=== PATIENT | female | born 2000 | race Two or more races ===

== ENCOUNTER 2021-12-26 01:38 | Emergency (ER) | payer SELFPAY ==
[~2021-12-26] VITALS: Ht 154.9 cm; Wt 98.7 kg
--- NOTE | 2021-12-26 03:24 | PHYS DOC ---
General Adult EDM: Chief Complaint: ABDOMINAL PAIN HPI: HPI: Patient is a 21 year old female who presents with complaint of intermittent abdominal pain. The patient notes that her pain has been present for a little over 1 week. States that the pain is off and on and located near her bellybutton and along the right side of her belly. She states that the pain increased to an 8 out of 10 prior to arrival but has now gone away. States that she has had similar pain in the past that was associated with problems with constipation. She denies any associated fever, vomiting, and does note that she has not been stooling as often during the time of symptoms. Denies any significant past medical history. Has not taken any medications for symptoms at this time. Review of Systems: Review of Systems: Constitutional: Denies fever or chills. [] Eyes: Denies change in visual acuity. [] HENT: Denies nasal congestion or sore throat. [] Respiratory: Denies cough or shortness of breath. [] Cardiovascular: Denies chest pain or edema. [] GI: Denies abdominal pain, nausea, vomiting, bloody stools or diarrhea. [] : Denies dysuria. [] Musculoskeletal: Denies back pain or joint pain. [] Integument: Denies rash. [] Neurologic: Denies headache, focal weakness or sensory changes. [] Endocrine: Denies polyuria or polydipsia. [] Lymphatic: Denies swollen glands. [] Psychiatric: Denies depression or anxiety. [] Heart Score: C/O Chest Pain: No Risk Factors: Risk Factors: DM, Current or recent (<one month) smoker, HTN, HLP, family history of CAD, obesity. Risk Scores: Score 0 - 3: 2.5% MACE over next 6 weeks - Discharge Home Score 4 - 6: 20.3% MACE over next 6 weeks - Admit for Clinical Observation Score 7 - 10: 72.7% MACE over next 6 weeks - Early Invasive Strategies Allergies: Allergies: Allergies Coded Allergies Type Severity Reaction Last Updated Verified No Known Drug Allergies 12/26/21 No Physical Exam: PE: Constitutional: Well developed, well nourished, no acute distress, non-toxic appearance. [] HENT: Normocephalic, atraumatic, bilateral external ears normal, oropharynx moist, no oral exudates, nose normal. [] Eyes: PERRLA, EOMI, conjunctiva normal, no discharge. [] Neck: Normal range of motion, no tenderness, supple, no stridor. [] Cardiovascular:Heart rate regular rhythm, no murmur [] Lungs & Thorax: Bilateral breath sounds clear to auscultation [] Abdomen: Bowel sounds normal, soft, no tenderness, negative Vila sign, negative McBurney's point tenderness, no masses, no pulsatile masses. [] Skin: Warm, dry, no erythema, no rash. [] Back: No tenderness, no CVA tenderness. [] Extremities: No tenderness, no cyanosis, no clubbing, ROM intact, no edema. [] Neurologic: Alert and oriented X 3, normal motor function, normal sensory function, no focal deficits noted. [] Current Patient Data: Labs: Laboratory Tests Test 12/26/21 02:00 12/26/21 02:20 White Blood Count 7.7 x10^3/uL Red Blood Count 4.96 x10^6/uL Hemoglobin 12.5 g/dL Hematocrit 38.2 % Mean Corpuscular Volume 77 fL Mean Corpuscular Hemoglobin 25 pg Mean Corpuscular Hemoglobin Concent 33 g/dL Red Cell Distribution Width 16.3 % Platelet Count 296 x10^3/uL Neutrophils (%) (Auto) 65 % Lymphocytes (%) (Auto) 28 % Monocytes (%) (Auto) 6 % Eosinophils (%) (Auto) 1 % Basophils (%) (Auto) 0 % Neutrophils # (Auto) 5.0 x10^3/uL Lymphocytes # (Auto) 2.1 x10^3/uL Monocytes # (Auto) 0.5 x10^3/uL Eosinophils # (Auto) 0.1 x10^3/uL Basophils # (Auto) 0.0 x10^3/uL Sodium Level 135 mmol/L Potassium Level 3.5 mmol/L Chloride Level 99 mmol/L Carbon Dioxide Level 28 mmol/L Anion Gap 8 Blood Urea Nitrogen 11 mg/dL Creatinine 0.7 mg/dL Estimated GFR (Cockcroft-Gault) 103.7 BUN/Creatinine Ratio 16 Glucose Level 98 mg/dL Calcium Level 8.7 mg/dL Total Bilirubin 0.4 mg/dL Aspartate Amino Transf (AST/SGOT) 9 U/L Alanine Aminotransferase (ALT/SGPT) 18 U/L Alkaline Phosphatase 106 U/L Total Protein 8.4 g/dL Albumin 3.5 g/dL Albumin/Globulin Ratio 0.7 Lipase 74 U/L Urine Collection Type Unknown Urine Color Yellow Urine Clarity Clear Urine pH 6.0 Urine Specific Tyler 1.015 Urine Protein Negative mg/dL Urine Glucose (UA) Negative mg/dL Urine Ketones (Stick) Negative mg/dL Urine Blood Negative Urine Nitrite Negative Urine Bilirubin Negative Urine Urobilinogen Dipstick 0.2 mg/dL Urine Leukocyte Esterase Small Urine RBC 0 /HPF Urine WBC 5-10 /HPF Urine Squamous Epithelial Cells Mod /LPF Urine Bacteria Few /HPF Urine Test Negative Vital Signs: Vital Signs Date Time Temp Pulse Resp B/P (MAP) Pulse Ox O2 Delivery O2 Flow Rate FiO2 12/26/21 01:40 98.1 89 18 142/68 (92) 100 Room Air 98.1 Vital Signs Date Time Temp Pulse Resp B/P (MAP) Pulse Ox O2 Delivery O2 Flow Rate FiO2 12/26/21 03:42 72 16 117/65 (82) 100 Room Air 12/26/21 01:40 98.1 98.1 EKG: EKG: Not performed [] Radiology/Procedures: Radiology/Procedures: [facility] [address] [place], [place] [id number] IMAGING REPORT Signed PATIENT: SALVATORE BEDOLLA ACCOUNT: [id number] : 2000 LOCATION: ER AGE: 21 SEX: F EXAM STATUS: REG ER ORD. PHYSICIAN: PAPITO CRUZ MD REASON: intermittent abdominal pain PROCEDURE: ABDOMEN SUPINE & UPRIGHT EXAMINATION: Abdominal radiograph. VIEWS: 2 COMPARISON: None INDICATION: 21 years, Female, Abdominal pain. FINDINGS: Nonobstructive bowel gas pattern. No gross pneumoperitoneum.No abnormal intra- abdominal calcifications. Lung bases are unremarkable.No acute osseous process. IMPRESSION: Nonobstructive bowel gas pattern. Electronically signed by: Michael Antnoy MD (12/26/2021 4:53 AM) [facility] DICTATED and SIGNED BY: MICHAEL ANTONY MD DATE: 12/26/21 [id number] [] Course & Med Decision Making: Course & Med Decision Making Pertinent Labs and Imaging studies reviewed. (See chart for details) Patient's abdominal examination is benign. Blood work was reviewed and was unremarkable. X-ray shows a nonobstructive bowel gas pattern. Vital signs are stable and patient is currently in no acute distress. Patient prescribed Bentyl and Zofran for treatment of symptoms and advised to increase fluid intake and consider use of MiraLAX for treatment of constipation symptoms. Recommend follow-up with primary care provider in the next 3 to 5 days for reevaluation if symptoms are not improving and return to the emergency department for any worsening symptoms. Patient voiced understanding and in agreement with treatment plan. Dragon Disclaimer: Dragon Disclaimer: This electronic medical record was generated, in whole or in part, using a voice recognition dictation system. Departure Departure Impression: Primary Impression: Abdominal pain Qualified Codes: R10.33 - Periumbilical pain Disposition: HOME / SELF CARE / HOMELESS Condition: IMPROVED Referrals: NO PCP (PCP) Patient Instructions: Abdominal Pain (Nonspecific) Additional Instructions: Return to the emergency department for any worsening symptoms. Scripts Ondansetron (ONDANSETRON ODT) 4 Mg Tab.rapdis 1 TAB PO PRN Q6-8HRS PRN for NAUSEA/VOMITING, #16 TAB Prov: PAPITO CRUZ MD 12/26/21 Dicyclomine Hcl (DICYCLOMINE HCL) 20 Mg Tablet 1 TAB PO TID PRN for ABDOMINAL CRAMPS, #30 TAB 0 Refills Prov: PAPITO CRUZ MD 12/26/21 PAPITO CRUZ MD Dec 26, 2021 03:24
[2021-12-26 03:30] LABS: BASO % 0 % (0-3); EOS # 0.1 x10^3/uL (0.0-0.7); EOS % 1 % (0-3); HEMATOCRIT 38.2 % (36.0-47.0); HEMOGLOBIN 12.5 g/dL (12.0-15.5); LYMPH # 2.1 x10^3/uL (1.0-4.8); LYMPH % 28 % (24-48); MEAN CORPUSCULAR HEMOGLOBIN 25 pg (25-35); MEAN CORPUSCULAR HGB CONC 33 g/dL (31-37); MEAN CORPUSCULAR VOLUME 77 fL (79-100); MONO # 0.5 x10^3/uL (0.0-1.1); MONO % 6 % (0-9); NEUT % 65 % (31-73); PLATELET COUNT 296 x10^3/uL (140-400); RED BLOOD COUNT 4.96 x10^6/uL (3.50-5.40); RED CELL DISTRIBUTION WIDTH 16.3 % (11.5-14.5); WHITE BLOOD COUNT 7.7 x10^3/uL (4.0-11.0)
[2021-12-26 03:33] LABS: U PREG PATIENT NEGATIVE (NEG)
[2021-12-26 03:34] LABS: BILIRUBIN,URINE NEGATIVE (NEG); CLARITY,URINE CLEAR; COLOR,URINE YELLOW; NITRITE,URINE NEGATIVE (NEG); PROTEIN,URINE NEGATIVE (NEG-TRACE); UROBILINOGEN,URINE 0.2 mg/dL (0.2 mg/dL)
[2021-12-26 03:35] LABS: BACTERIA,URINE FEW /HPF (0-FEW); RBC,URINE 0 /HPF (0-2)
[2021-12-26 03:36] LABS: CALCIUM 8.7 mg/dL (8.5-10.1); CREATININE 0.7 mg/dL (0.6-1.0); GFR 103.7; POTASSIUM 3.5 mmol/L (3.5-5.1)
[2021-12-26 03:42] LABS: ALBUMIN 3.5 g/dL (3.4-5.0); ALBUMIN/GLOBULIN RATIO 0.7 (1.0-1.7); TOTAL BILIRUBIN 0.4 mg/dL (0.2-1.0); TOTAL PROTEIN 8.4 g/dL (6.4-8.2)
--- NOTE | 2021-12-26 04:56 | RAD ---
EXAMINATION: Abdominal radiograph. VIEWS: 2 COMPARISON: None INDICATION: 21 years, Female, Abdominal pain. FINDINGS: Nonobstructive bowel gas pattern. No gross pneumoperitoneum.No abnormal intra-abdominal calcification s. Lung bases are unremarkable.No acute osseous process. IMPRESSION: Nonobstructive bowel gas pattern. Electronically signed by: Michael Antony MD (12/26/2021 4:53 AM) [facility]
[2021-12-26 05:00] VITALS: BP 134/88
[2021-12-26] MEDS ORDERED: DICY20TA PO (05:09)
[2021-12-26] MEDS ORDERED: ONDA4TAB12 PO (05:09)
== END 2021-12-26 05:30 | disposition home or self-care (01) ==
LOC: ER 01:38
DX: R10.33 Periumbilical pain (principal)
CPT/HCPCS: 36415; 74021; 80053; 81001; 81025; 83690; 85025; 87086; 99285-25